=== PATIENT | female | born 1975 | race Hispanic/Latino ===

== ENCOUNTER 2023-06-18 00:17 | Emergency (ER) | payer OTHER ==
[~2023-06-18] VITALS: Ht 152.4 cm; Wt 55.8 kg
[2023-06-18] MEDS: SOLU-MEDROL 125MG VIAL IVP ONE (00:39)
[2023-06-18] MEDS: LABETALOL 20MG VIAL IV ONE (00:40)
[2023-06-18 00:51] LABS: BASOPHILS # (AUTO) 0.03 K/uL (0.00-0.20); BASOPHILS % (AUTO) 0.3 % (0.0-5.0); EOSINOPHILS # (AUTO) 0.12 K/uL (0.00-0.70); HEMATOCRIT 36.6 % (36-48); IMMATURE GRANULOCYTE ABSOLUTE 0.06 K/uL (0-1); LYMPHOCYTES # (AUTO) 3.8 K/uL (1.0-4.8); LYMPHOCYTES % (AUTO) 31.8 % (21.0-51.0); MEAN CORPUSCULAR HGB CONC 32.8 g/dL (32.0-36.0); MEAN CORPUSCULAR VOLUME 85.3 fL (79-99); MONOCYTES # (AUTO) 0.5 K/uL (0.1-1.0); MONOCYTES % (AUTO) 4.3 % (3.0-13.0); NEUTROPHILS # (AUTO) 7.4 K/uL (1.8-7.7); NEUTROPHILS % (AUTO) 62.1 % (40.0-77.0); PLATELET COUNT (AUTO) 253 K/uL (130-400); RED BLOOD CELL COUNT(AUTO) 4.29 MIL/uL (4.00-5.50); RED CELL DISTRIBUTION WIDTH 13.8 % (11.0-15.5); WHITE BLOOD COUNT (AUTO) 11.9 K/uL (4.8-10.8)
[2023-06-18 00:54] LABS: CARBON DIOXIDE 29 mmol/L (21-32); CHLORIDE 103 mmol/L (101-111); CREATININE 0.7 mg/dL (0.5-1.5); GLOMERULAR FILTR. RATE CALC 107 mL/min (>90); GLUCOSE,RANDOM 89 mg/dL (70-105); POTASSIUM 3.2 mmol/L (3.5-5.1); SODIUM SERUM 140 mmol/L (136-145); UREA NITROGEN, BLOOD 26 mg/dL (7-18)
[2023-06-18 01:00] LABS: ALANINE AMINOTRANSFERASE 56 U/L (12-78); ALBUMIN 3.7 g/dL (3.5-5.0); ASPARTATE AMINOTRANSFERASE 15 U/L (10-37); BILIRUBIN,TOTAL 0.3 mg/dL (0.2-1.0); CREATINE KINASE, TOTAL 34 U/L (21-232); TOTAL PROTEIN, SERUM 7.5 g/dL (6.0-8.3)
[2023-06-18 01:02] LABS: APPEARANCE,URINE CLEAR (CLEAR); BILIRUBIN,URINE NEGATIVE (NEGATIVE); COLOR,URINE YELLOW (YELLOW); GLUCOSE, URINE (UA) 50 mg/dL (NEGATIVE); KETONES,URINE NEGATIVE (NEGATIVE); LEUKOCYTE ESTERASE ,URINE 75 Leu/uL (NEGATIVE); NITRATE,URINE NEGATIVE (NEGATIVE); OCCULT BLOOD,URINE MODERATE (NEGATIVE); PROTEIN,URINE 20 mg/dL (NEGATIVE); UROBILINOGEN,URINE 0.2 mg/dL (0.2-1.0)
[2023-06-18 01:04] LABS: ADD UA MICROSCOPIC YES
[2023-06-18 01:09] LABS: HCG,QUALITATIVE URINE NEGATIVE (NEGATIVE)
[2023-06-18 01:12] LABS: B-TYPE NATRIURETIC PEPTIDE 29 pg/mL (0-100)
[2023-06-18 01:15] LABS: CALCIUM OXALATE CRYSTALS,UR RARE /LPF (None Seen); MUCUS,URINE MANY LPF (None Seen); OTHER CASTS, URINE 1 /LPF (None Seen); RBC,URINE 26-50 /HPF (0-1); SQUAMOUS EPITHELIAL CELL,UR FEW /HPF (0-2); TRANSITIONAL EPI CELLS,URINE RARE /HPF (None Seen)
[2023-06-18 01:32] LABS: INFLUENZA TYPE A Negative For Type A (NEGATIVE); INFLUENZA TYPE B Negative For Type B (NEGATIVE)
[2023-06-18 01:36] LABS: SARS-CoV-2, RNA, NAAT NEGATIVE SARS CoV-2 (NEGATIVE)
[2023-06-18] MEDS: CEFTRIAXONE 1G VIAL IVPB ONE (01:46)
[2023-06-18] MEDS: KETOROLAC 30MG VIAL (30MG/ML) IVP ONE (01:47)
[2023-06-18 01:49] VITALS: PULSE 71
[2023-06-18] MEDS: ONDANSETRON 4MG INJ IVP ONE (02:54)
[2023-06-18] MEDS: MORPHINE 2 MG SYG IVP ONE (02:54)
[2023-06-18] MEDS ORDERED: CEFU500T67 PO (03:22)
[2023-06-18] MEDS ORDERED: IBUP-1493 PO (03:22)
[2023-06-18] MEDS ORDERED: ENAL20TA60 PO (03:22)
[2023-06-18] MEDS ORDERED: TAMS-1 PO (03:22)
[2023-06-18] MEDS: MORPHINE 4 MG SYG IVP ONE (03:35)
[2023-06-18 04:23] VITALS: BP 152/70; PULSE 64; RESP 12; O2SAT 98
== END 2023-06-18 04:27 | disposition home or self-care (01) ==
LOC: EDH 00:17
DX: N20.0 Calculus of kidney (principal); I10 Essential (primary) hypertension; E05.90 Thyrotoxicosis, unspecified without thyrotoxic crisis or storm; Z20.822 Contact with and (suspected) exposure to COVID-19; Z98.890 Other specified postprocedural states
CPT/HCPCS: 99285; 70450; 96374; 96375 ×2; 87635; 82550; 83735; 84484; 80053; 83880; 85025; 87040 ×2; 87088; 87804 ×2; 83605; 81001; 81025; 36415; 74176; 96376; 93005; J2270 ×2; J2930; J0696; J2405; J1885; J3490